=== PATIENT | male | born 1960 ===

== ENCOUNTER → 2021-12-05 | Outpatient (CLI) | payer OTHER ==
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
== END ==
LOC: CT 09:20
PROVIDERS: ATTEND Family Medicine
DX: R41.3 Other amnesia (principal); G93.89 Other specified disorders of brain; J34.1 Cyst and mucocele of nose and nasal sinus; Z87.81 Personal history of (healed) traumatic fracture
CPT/HCPCS: 70450